=== PATIENT | female | born 1955 | race Two or more races ===

== ENCOUNTER 2016-12-23 06:39 | Observation (INO) | payer OTHER ==
[2016-12-23] MEDS ORDERED: NS 1,000 ML IV ONE (06:48)
[2016-12-23] MEDS ORDERED: BENZOCAINE UNIT DOSE SPRAY HURRICAINE MM ONE (06:48)
[2016-12-23] MEDS ORDERED: fentaNYL 100 MCG/2 ML INJ IVP ONE (06:48)
[2016-12-23] MEDS ORDERED: MIDAZOLAM 2 MG/2 ML VIAL IVP ONE ×2 (06:48)
--- NOTE | 2016-12-23 07:22 | CPEKG ---
Heart Rate: 80 RR Interval: 750 P-R Interval: 140 QRSD Interval: 84 QT Interval: 376 QTC Interval: 434 P [place]: 73 QRS [place]: 6 T Wave [place]: 40 EKG Severity - NORMAL ECG - EKG Impression: SINUS RHYTHM EKG Impression: RATES HAVE SLOWED IN COMPARISON TO PRIOR Electronically Signed By: Anton Patton 24-Dec-2016 08:44:16
[2016-12-23 07:38] LABS: % IMMATURE GRANULYOCYTES 0.2 % (0.0-1.1); ABSOLUTE IMMATURE GRANULOCYTES 0.01 10^3/uL (0.00-0.10); ADD DIFF? NO; ADD MORPH? NO; ADD SCAN? NO; ATYPICAL LYMPHOCYTE FLAG 10 (0-99); FRAGMENT RBC FLAG 0 (0-99); HEMATOCRIT 43.1 % (38.0-47.0); HEMOGLOBIN 13.9 g/dL (12.6-16.3); LEFT SHIFT FLG 0 (0-99); LIPEMIA HEMOLYSIS FLAG 80 (0-99); MEAN CELL HEMOGLOBIN 26.8 pg (27.9-34.1); MEAN CELL HEMOGLOBIN CONCENTR. 32.3 g/dL (32.4-36.7); PLATELET CLUMPS FLAG 0 (0-99); PLATELET COUNT 254 10^3/uL (150-400); RED BLOOD CELL COUNT 5.19 10^6/uL (4.18-5.33); RED CELL DISTRIBUTION WIDTH 13.9 % (11.5-15.2)
[2016-12-23 07:47] LABS: INR 1.58 (0.83-1.16); PROTIME(PATIENT) 18.9 SEC (12.0-15.0)
[2016-12-23 07:49] LABS: APTT 54.5 SEC (23.0-38.0)
[2016-12-23 07:55] LABS: ANION GAP 11 mEq/L (8-16); CALCIUM 9.9 mg/dL (8.5-10.4); CARBON DIOXIDE 27 mEq/l (22-31); CHLORIDE 106 mEq/L (97-110); CREATININE 0.9 mg/dL (0.6-1.0); GLOMERULAR FILTRATION RATE > 60; GLUCOSE 86 mg/dL (70-100); MAGNESIUM 1.8 mg/dL (1.6-2.3); SODIUM 144 mEq/L (134-144)
[2016-12-23] MEDS ORDERED: LIDOCAINE 1% 30 ML SDV ONE (08:15)
[2016-12-23] MEDS ORDERED: ISOPROTERENOL HCL 0.2 MG/ML 5ML AMP ONE (08:15)
[2016-12-23] MEDS ORDERED: BUPIVACAINE 0.5% 30 ML SDV ONE (08:15)
[2016-12-23] MEDS ORDERED: HEPARIN 10,000 UNIT/10 ML MDV ONE (08:15)
[2016-12-23] MEDS ORDERED: MIDAZOLAM 2 MG/2 ML VIAL ONE (08:21)
[2016-12-23] MEDS ORDERED: ROCURONIUM 100 MG/10 ML VIAL ONE (08:22)
[2016-12-23] MEDS ORDERED: ONDANSETRON 4 MG/2 ML VIAL ONE (08:22)
[2016-12-23] MEDS ORDERED: DEXAMETHASONE 4 MG/ML VIAL ONE ×2 (08:22)
[2016-12-23] MEDS ORDERED: fentaNYL 100 MCG/2 ML INJ ONE (08:23)
[2016-12-23] MEDS ORDERED: PROPOFOL 200 MG/20 ML VIAL ONE (08:23)
[2016-12-23] MEDS ORDERED: HEPARIN/DEXTROSE 25,000 UNIT/500 ML BAG IV ONE (09:36)
[2016-12-23] MEDS ORDERED: SUGAMMADEX SODIUM 200 MG/2 ML VIAL IVP ONE (11:32)
[2016-12-23] MEDS ORDERED: ATROPINE SULFATE 1 MG/10 ML SYR ONE (11:59)
--- NOTE | 2016-12-23 12:37 | EPPROC ---
Electrophysiology Procedure Note: ELECTROPHYSIOLOGIC STUDY AND CATHETER MEDIATED ABLATION OF SLOW/FAST AV JAIRON REENTRY TACHYCARDIA PROCEDURES PERFORMED: 50821-84 EP evaluation with RA/RV/LA pace/record, with arrhythmia induction 38831-12 EP evaluation with RA/RV pace record, insert/reposition catheter, with arrhythmia induction 43711 Intracardiac catheter ablation, SVT arrhythmogenic focus 17378 3D mapping Fluoroscopy INDICATION: SVT Antiphospholipid antibody syndrome procedure done with INR 1.5 and therapeutic dose of heparin PROCEDURE: Catheters & Anesthesia: The patient arrived in the Electrophysiology Laboratory in the fasting state. The right clavicular region, right groin, and left groin area were prepped and draped in the usual sterile manner. Anesthesiologist Dr. Candice Phan administered general anesthesia. Appropriate non-invasive blood pressure, pulse oximetry and end-tidal CO2 monitoring was established. All catheters were placed percutaneously using the modified Seldinger technique , and advanced into position under fluoroscopic guidance. One #6 [place] hexapolar non-deflectable electrode catheter was inserted into the right atrial appendage via the left femoral vein (2mm spacing; except the proximal ring which was 25cm from the tip used for unipolar recordings). One #7 [place] deflectable octapolar electrode catheter was advanced to the His-bundle position via the left femoral vein (2mm spacing). One #7 [place] deflectable quadrapolar catheter was advanced to the anteroseptal right ventricle via the right femoral vein. One #7 [place] deflectable catheter with 10 pairs of electrodes was placed via the right femoral vein into the coronary sinus. Heparin was given to keep ACT > 300 s. Programmed stimulation was performed from the right atrium, right ventricle and coronary sinus (left atrium). Parahisian pacing demonstrated constant H-A interval with changing V-A intervals and stimulus-A intervals during capture and loss of capture of proximal RBB proving retrograde conduction over AV node. AVNRT was induced easily at baseline. Ventricular extrastimuli delivered during tachycardia without altering antegrade His bundle activation did not advance next atrial potential, indicating that the tachycardia was not utilizing an accessory pathway for retrograde conduction. VA interval was -15 ms. Post entrainment of the tachycardia from the ventricle, there was VAHV response. SVT started with long AH interval Mapping of the right atrium and coronary sinus during AVNRT identified earliest atrial activation above the tendon of Pauline at a level slightly posterior to the level of the His bundle, consistent with retrograde conduction over the fast AV jairon pathway. A #8 [place] deflectable quadrapolar electrode catheter (2mm-5mm-2mm spacing) with 4 mm tip electrode and sensor for the 3D mapping Carto system was advanced to the right atrium. 3 D mapping of the inter-atrial septum and coronary sinus was performed and location of the AV node was marked. A SL2 sheath was used. RF applications were delivered to the region between the tricuspid annulus and the coronary sinus ostium, at the level of the upper edge of the coronary sinus ostium. Radiofrequency applications were also delivered along the roof of the proximal coronary sinus. Junctional rhythm occurred during all of the RF applications. AVNRT continued to be inducible. Therefore RF catheter was changed to a 6 mm cryoablation catheter and lesions placed at the low midseptal tricuspid annulus and the anteroapical edge of the CS and the roof of the proximal CS. This rendered AVNRT non inducible. There was no antegrade conduction over the slow AV jairon pathway post ablation. Atrial fibrillation was induced x 2, terminated spontaneously. Programmed stimulation was continued post ablation at baseline and during graded doses of isoproterenol upto 4mcg/min. Sustained AVNRT was not inducible. There were no echo beats. The catheters were removed. The long sheath was changed to a short 9 Fr sheath. The patient was transferred to the cardiovascular holding area in stable condition. Vascular access sheaths were removed in the holding area. There were no apparent complications. Results: A. Spontaneous Intervals: Pre ablation SCL 780 ms AH 45 ms HV 40 ms Post ablation SCL 740 ms AH 50 ms HV 40 ms B. Antegrade AV jairon function (decremental pacing) Pre ablation FPERP _380_ ms SPERP 370__ ms WBB CL 360__ ms (AH jump from _150_ ms to _260_ ms at FPERP) Post ablation FPERP _390_ ms WBB CL 380 ms C. Retrograde AV jairon function (decremental pacing) Pre ablation FPERP 390 ms WBB CL 380 ms D. Arrhythmias: Sustained slow/fast AVNRT Cycle length 400 ms, AH interval 330 ms, OREILLY interval _70_ ms VA interval -15 ms CONCLUSIONS 1. AV jairon reentrant tachycardia using the slow AV jairon pathway for antegrade conduction and the fast AV jairon pathway for retrograde conduction. ( Slow/fast AVNRT). 2. Successful ablation of the slow AV jairon pathway with elimination of 1:1 antegrade conduction over the slow AV jairon pathway, all retrograde conduction over the slow AV jairon pathway and the inducibility of AVNRT. Both RF and cryo ablation needed to be used. 3. No complications. Patient Problems: Problems Problem Status Onset SVT (supraventricular tachycardia) Acute
[2016-12-23] MEDS ORDERED: OXYCODONE/APAP 5/325 TAB PO PRN (12:38)
[2016-12-23] MEDS ORDERED: ONDANSETRON 4 MG/2 ML VIAL IVP PRN (12:38)
[2016-12-23] MEDS ORDERED: ACETAMINOPHEN 325 MG TAB PO PRN (12:38)
[2016-12-23] MEDS ORDERED: VERAPAMIL 120 MG TAB PO PRN (12:39)
[2016-12-23] MEDS ORDERED: OXYCODONE/APAP 5/325 TAB ONE (12:52)
--- NOTE | 2016-12-23 13:00 | CPEKG ---
Heart Rate: 92 RR Interval: 652 P-R Interval: 148 QRSD Interval: 84 QT Interval: 376 QTC Interval: 466 P [place]: 73 QRS [place]: -42 T Wave [place]: 54 EKG Severity - OTHERWISE NORMAL ECG - EKG Impression: SINUS RHYTHM EKG Impression: LEFT AXIS DEVIATION Electronically Signed By: Anton Patton 24-Dec-2016 08:44:21
[2016-12-23 13:34] LABS: ANION GAP 10 mEq/L (8-16); CARBON DIOXIDE 24 mEq/l (22-31); CHLORIDE 110 mEq/L (97-110); CREATININE 0.9 mg/dL (0.6-1.0); GLOMERULAR FILTRATION RATE > 60; GLUCOSE 118 mg/dL (70-100); MAGNESIUM 1.6 mg/dL (1.6-2.3); POTASSIUM 3.9 mEq/L (3.5-5.2); SODIUM 144 mEq/L (134-144)
[2016-12-23] MEDS ORDERED: WARFARIN SODIUM 2.5 MG TAB PO SCH (16:00)
[2016-12-23] MEDS: ENOXAPARIN 60 MG/0.6 ML SYR SC SCH (22:41)
[2016-12-24 04:24] LABS: % IMMATURE GRANULYOCYTES 0.4 % (0.0-1.1); ABSOLUTE IMMATURE GRANULOCYTES 0.03 10^3/uL (0.00-0.10); ADD DIFF? NO; ADD MORPH? NO; ADD SCAN? NO; ATYPICAL LYMPHOCYTE FLAG 0 (0-99); FRAGMENT RBC FLAG 0 (0-99); HEMATOCRIT 37.6 % (38.0-47.0); HEMOGLOBIN 12.1 g/dL (12.6-16.3); LEFT SHIFT FLG 0 (0-99); LIPEMIA HEMOLYSIS FLAG 80 (0-99); MEAN CELL HEMOGLOBIN 26.9 pg (27.9-34.1); MEAN CELL HEMOGLOBIN CONCENTR. 32.2 g/dL (32.4-36.7); MEAN CELL VOLUME 83.6 fL (81.5-99.8); MEAN PLATELET VOLUME 9.3 fL (8.7-11.7); PLATELET CLUMPS FLAG 0 (0-99); PLATELET COUNT 238 10^3/uL (150-400)
[2016-12-24 04:32] LABS: INR 1.53 (0.83-1.16); PROTIME(PATIENT) 18.4 SEC (12.0-15.0)
[2016-12-24 04:45] LABS: ANION GAP 10 mEq/L (8-16); CALCIUM 9.1 mg/dL (8.5-10.4); CARBON DIOXIDE 23 mEq/l (22-31); CHLORIDE 107 mEq/L (97-110); CREATININE 0.9 mg/dL (0.6-1.0); GLOMERULAR FILTRATION RATE > 60; GLUCOSE 100 mg/dL (70-100); POTASSIUM 4.2 mEq/L (3.5-5.2); SODIUM 140 mEq/L (134-144)
[2016-12-24 04:58] LABS: TROPONIN I 0.915 ng/mL (0-0.034)
[2016-12-24 05:28] LABS: CK-MB INTERPRETATION NEGATIVE (NEGATIVE); CREATINE KINASE-MB FRACTION 3.84 ng/mL (0-3.19)
--- NOTE | 2016-12-24 09:09 | CPEKG ---
Heart Rate: 83 RR Interval: 723 P-R Interval: 140 QRSD Interval: 80 QT Interval: 368 QTC Interval: 433 P [place]: 67 QRS [place]: 50 T Wave [place]: 47 EKG Severity - NORMAL ECG - EKG Impression: SINUS RHYTHM Electronically Signed By: Oliver Bradley 24-Dec-2016 15:34:17
[2016-12-24] MEDS: ENOXAPARIN 60 MG/0.6 ML SYR SC SCH (09:32)
--- NOTE | 2016-12-24 11:08 | ECHO ---
[id number] + + [address] : : [place] [address] : : [phone] + + Adult Echocardiographic Report + + :Name: CAM GASTELUMjase Date: 12/24/2016 07:52 AM : : Hospital Admission Number: [id number] Location: 211: :: 1955 Gender: Female Height: 67 in : :Age: 61 yrs Race: [facility] Weight: 136 lb : :Reason For Study: SVT, F/U post EP : : BSA: 1.7 meters2 : + + MMode/2D Measurements \T\ Calculations IVSd: 1.1 cm LVIDd: 4.4 cm FS: 27.7 % LVOT diam: 1.7 cm LVPWd: 1.00 cm LVIDs: 3.2 cm EDV(Teich): 89.6 ml LVOT area: 2.1 cm2 ESV(Teich): 41.3 ml EF(Teich): 53.9 % Normal Measurement Values: + + :LVIDd (3.5-5.7cm) IVSd (0.6-1.1cm) LVPWd (0.6-1.1cm) Aortic Root (2.0-3.7cm)Left Atrium (1.5-4.0cm): :LV Vol(d) (76-115ml) LV Vol(s) (29-48ml) Ejec Fraction (50-65%)PV Kieran (0.6- 1.2m/s) TV Kieran (0.4-1.0m/s) : :MV E Kieran (0.8-1.0m/s)MV A Kieran (0.3-1.0m/s)LVOT Kieran (0.7-1.2m/s) Asc Ao Kieran ( 0.9-1.8m/s) : + + Doppler Measurements \T\ Calculations MV E max kieran: MV V2 max: MV P1/2t max kieran: Ao mean P.0 cm/sec 156.1 cm/sec 159.0 cm/sec 3.3 mmHg MV A max kieran: MV max PG: MV P1/2t: 95.3 msec Ao V2 mean: 104.1 cm/sec 9.7 mmHg MVA(P1/2t): 2.3 cm2 84.4 cm/sec MV E/A: 1.5 MV V2 mean: MV dec slope: Ao V2 VTI: MV dec time: 95.6 cm/sec 25.3 cm 0.26 sec MV mean P.9 cm/sec2 ADELA(I,D): 1.4 cm2 4.1 mmHg MV V2 VTI: 39.0 cm MVA(VTI): 0.93 cm2 LV V1 mean PG: MR max kieran: SV(LVOT): 36.2 ml PA V2 max: 1.4 mmHg 438.7 cm/sec 102.2 cm/sec LV V1 mean: MR max PG: PA max P.6 cm/sec 77.2 mmHg 4.2 mmHg LV V1 VTI: 16.9 cm PA V2 mean: 68.5 cm/sec PA mean P.3 mmHg PA V2 VTI: 23.4 cm TR max kieran: 255.8 cm/sec TR max P.2 mmHg RAP systole: 10.0 mmHg RVSP(TR): 36.2 mmHg Left Ventricle The left ventricle is normal in size and function. There is normal left ventricular wall thickness. Left ventricular systolic function is normal. There is Doppler evidence for diastolic dysfunction. Right Ventricle The right ventricle is normal in size and function. Atria The left atrium is mildly dilated. The right atrium is mildly dilated. The interatrial septum is intact with no evidence for an atrial septal defect. Mitral Valve The mitral valve leaflets appear thickened, but open well. Posterior valve appears fixed. There is no mitral valve stenosis. There is mild to moderate mitral regurgitation. Tricuspid Valve The tricuspid valve is normal in structure and function. There is no tricuspid stenosis. There is mild tricuspid regurgitation. Right ventricular systolic pressure is 36.2mmHg. Aortic Valve The aortic valve is normal in structure and function. There is no aortic stenosis. There is no aortic insufficiency. Pulmonic Valve The pulmonic valve is not well visualized. There is no pulmonic valvular stenosis. There is no pulmonic valvular regurgitation. Great Vessels The aortic root is normal size. Pericardium/Pleural There is a fat pad seen. Conclusion A complete two-dimensional transthoracic echocardiogram was performed (2D, M-mode, Doppler and color flow Doppler). The left ventricle is normal in size and function. Left ventricular systolic function is normal. There is Doppler evidence for diastolic dysfunction. The left atrium is mildly dilated. The mitral valve leaflets appear thickened, but open well. Posterior valve appears fixed. There is mild to moderate mitral regurgitation. There is mild tricuspid regurgitation. Right ventricular systolic pressure is 36.2mmHg. The aortic valve is normal in structure and function. There is a fat pad seen. Final Reading Physician: Rhys Freire signed on 12/24/2016 11:06 AM Ordering Physician: Avery Snider Performed By: Tiffanie Valverde
[2016-12-24 12:27] VITALS: BP 137/75; PULSE 81; RESP 15; TEMP 97.5; O2SAT 97
--- NOTE | 2016-12-24 14:51 | GDS ---
ADMISSION DIAGNOSES: 1. Supraventricular tachycardia. 2. Antiphospholipid syndrome. 3. Previous cerebrovascular accident. 4. Mitral regurgitation. DISCHARGE DIAGNOSES: 1. Atrioventricular mee reentry tachycardia. 2. Successful ablation of slow atrioventricular mee pathway, with elimination of 1:1 antegrade co nduction over slow atrioventricular mee pathway. 3. Antiphospholipid syndrome. 4. Previous cerebrovascular accident. 5. Mitral regurgitation. PROCEDURES DONE DURING HOSPITALIZATION: 1. Electrocardiogram. 2. Electrophysiology study. 3. Successful ablation of atrioventricular mee slow pathway that eliminated 1:1 antegrade conduct ion. 4. Echocardiogram. BRIEF HISTORY: Please see history and physical: Patient is a 61-year-old female, patient of Dr. Duarte Pemberton. She has had symptoms of supraventricular tachycardia for 6 years, she has noted thro ughout the previous electrocardiograms to have a narrow complex tachycardia with rates up to 170 reid ts per minute. She was referred to Dr. Snider for further evaluation. Patient reported she did not wa nt to take long-term medication, and preferred ablation procedure. Risks and benefits were explaine d to the patient, she agreed to come on. HOSPITAL COURSE: Patient admitted through CVC, prepped for procedure and taken to electrophysiology lab. There, Dr. Snider performed EP procedure and able to identify AV mee reentry tachycardia using a slow AV mee pathway. At that point he intervened with ablation, using both RF and cryo techniq ues, to eliminate a slow AV mee pathway, with elimination of 1:1 antegrade conduction over the slo w AV mee pathway. No complications, patient was transferred to the CVC and ultimately to the PCU for overnight observation. Patient reports overnight no episodes of chest pain or pressure. Report ing both groin sites with no bleeding. Denies any pains at insertion site. Denies of any chest pre ssure or shortness of breath. On continuous cardiac exercise specialist she appears to be in sinus rhythm with no malignant arrhythmia or pauses noted. PHYSICAL EXAMINATION: GENERAL APPEARANCE: A medium built, well-groomed female, she is cynthia rt and oriented to person, place, time, and situation. Appears to be under no acute distress. NANETTE L SIGNS: Current vital signs, blood pressure of 135/75, heart rate 81, respirations 15, saturating 97% on room air, temperature of 36.4 degrees Celsius. HEENT: Head is normocephalic. Lips and tong ue are pink and moist with no signs of cyanosis, conjunctivae pink. NECK: Trachea is midline, +2 c arotid pulses bilateral. No auscultated bruits, no jugular vein distention. RESPIRATORY: Lungs cl ear to auscultation, no rhonchi, rales or wheezes. No accessory muscle use, no intercostal muscle r etraction noted. CARDIAC: Regular rate, regular rhythm, S1 and S2, no S3, S4, gallops rubs or murm ur noted. ABDOMEN: Soft, nontender, bowel sounds x4 quadrants. No organomegaly, no palpable sharonda s. SKIN: [place], warm, dry. No cyanosis, no clubbing, no peripheral edema. Catheter insertion site , bilateral groin sites, with no redness, swelling, drainage, ecchymosis, or hematoma, no auscultate d bruit over either site. VASCULAR: With +2 carotids bilateral, +2 radials bilateral, +2 dorsal pe renee and posterior tibial pulses bilateral. NEUROLOGIC: Cranial nerves 2-12 grossly intact. LABORATORY DATA: Laboratories from today show a WBC of 8.50, hemoglobin 12.1, hematocrit of 37.6, p latelet count 238, INR of 1.53, sodium 140, potassium 4.2, chloride 107, CO2 of 23, BUN 12, creatini ne 0.9, glucose 100, calcium 9.1, CK of 100, CK-MB fraction 3.84, CK-MB percentage of 3.8, troponin of 0.915. Note, expected to have elevated cardiac enzymes status post cardiac catheterization. STUDIES: Electrophysiology and ablation procedure as above. Morning electrocardiogram shows sinus rhythm, normal axis, no significant ST or T-wave abnormalities suggestive of ischemia. Echocardiogram done today showed LV of normal size and function, normal LV systolic function, diasto lic dysfunction noted. LA is mildly dilated, mitral valves appeared thickened but open well, oil dipper ior valve appears fixed. Mild to moderate MR, mild TR, RVSP of 36.2 mmHg, aortic valve was structur ally normal. Fat pad seen. DISCHARGE DISPOSITION: Patient will be discharged home in stable condition. She is under activity restrictions of no lifting more than 10 pounds for the next week, and no strenuous activity for the next 2 weeks. DISCHARGE MEDICATIONS: Please see discharge medication reconciliation sheet: Note, patient has bee n restarted on her warfarin therapy yesterday afternoon, and she is currently being bridged with Gem enox. We will plan on bridging her with Lovenox for the next 48 hours, 1 mg/kg every 12 hours subcu taneous. After she resumes her normal warfarin she is to have an INR check done on Wednesday. I have notified our triage nurses to watch for lab values. DISCHARGE INSTRUCTIONS: Post electrophysiology/ablation discharge instructions went over with the p lucia and her , including monitoring for signs of infection, activity restriction, medicatio n compliancy, DVT precautions, followup appointment, and bathing precautions. At the time of discha rge the patient and all verbalized understanding, no questions. They have a followup appoin tment with Dr. Snider on January 27, 2017 at 1:45. They have been told that any problems or concerns post discharge they are to notify our office or return to the hospital. Total time spent on discharge g reater than 30 minutes. /[id number]/MODL
[2016-12-24] MEDS ORDERED: WARFARIN SODIUM 5 MG TAB PO SCH (16:00)
== END 2016-12-24 12:55 | disposition home or self-care (01) ==
LOC: FCATH 06:39 → F2W 12:38
PROVIDERS: ADMIT Internal Medicine Cardiovascular Disease; ATTEND Internal Medicine Cardiovascular Disease
DX: I47.1 Supraventricular tachycardia (principal); D68.61 Antiphospholipid syndrome; I34.0 Nonrheumatic mitral (valve) insufficiency; Z86.73 Personal history of transient ischemic attack (TIA), and cerebral infarction without residual deficits
CPT/HCPCS: 93005; 93306; 93312; 93613; 93621; 93623; 93653; C1730; C1731; C1732; G0378; C1733; C1893; J0461; J1100; J1644; J1650; J2250; J2405; J2704; J3010